=== PATIENT | female | born 1990 | race Hispanic/Latino ===

== ENCOUNTER 2016-09-18 22:31 | Emergency (ER) | payer OTHER ==
[2016-09-18 22:48] VITALS: PULSE 72; O2SAT 99
[2016-09-18] MEDS ORDERED: Bacitracin 500 Units/gm Oint Foilpak UD ONE (23:32)
--- NOTE | 2016-09-18 23:37 | C.PDOC ---
History Of Present Illness A 25 y/o F c/o pain and injury to the right big toe nail that occurred today. Pt jammed her right big toe on a heavy door. Minimal bleeding noted and tetanus UTD. Denies fever, chills, weakness, numbness, or any other complaints. Time Seen by Provider: 09/18/16 22:52 Chief Complaint (Nursing): Lower Extremity Problem/Injury History Per: Patient History/Exam Limitations: no limitations Onset/Duration Of Symptoms: Hrs Current Symptoms Are (Timing): Still Present Severity: Mild Recent travel outside of the [place]: No Additional History Per: Patient - Ankle/Foot Description Of Injury: Struck Against Object (Large heavy door) Past Medical History Reviewed: Historical Data, Nursing Documentation, Vital Signs Vital Signs: Last Vital Signs Temp 98.2 F 09/18/16 23:45 Pulse 72 09/18/16 23:45 Resp 16 09/18/16 23:45 BP 131/80 09/18/16 23:45 Pulse Ox 99 09/19/16 00:49 Family History: States: Unknown Family Hx - Social History Hx Alcohol Use: Yes Hx Substance Use: No - Immunization History Hx Tetanus Toxoid Vaccination: Yes Hx Influenza Vaccination: Yes Hx Pneumococcal Vaccination: No Review Of Systems Except As Marked, All Systems Reviewed And Found Negative. Constitutional: Negative for: Fever, Chills Musculoskeletal: Positive for: Foot Pain (Pain and injury to the right big toe) Neurological: Negative for: Weakness, Numbness Physical Exam - Physical Exam Appears: Non-toxic, No Acute Distress Skin: Warm, Dry Head: Atraumatic, Normacephalic Extremity: No Tenderness (No bony tenderness), Capillary Refill (<2secs), Other (Right big toe nail impacted with nail appearing angulated from the nail bed, but still attached at the base of the nail. No active bleeding. No ecchymosis. ) Pulses: Left Dorsalis Pedis: Normal, Right Dorsalis Pedis: Normal Neurological/Psych: Oriented x3, Normal Motor, Normal Sensation Gait: Steady ED Course And Treatment O2 Sat by Pulse Oximetry: 99 (RA) Pulse Ox Interpretation: Normal Progress Note: Impression: A 25 y/o F c/o pain and injury to the right big toe nail that occurred today. Plans: Motrin, Reassess. Toe irrigated with saline and bacitracin dressing applied. Placed in Orthopedic shoe for support. Pt is in no acute distress at this time. Pt refused XRAY. Pt advised to follow up with ophthalmologist tomorrow for evalutaion. Disposition Counseled Patient/Family Regarding: Diagnosis, Need For Followup, Rx Given - Disposition Disposition: HOME/ ROUTINE Disposition Time: 23:34 Condition: STABLE Additional Instructions: Please follow up with podiatry Keep orthopedic shoe for support Motrin for pain Return to ER if worse Instructions: Nail Avulsion (ED) - Clinical Impression Clinical Impression: Injury of toenail of right foot - Scribe Statement The provider has reviewed the documentation as recorded by the Scribe Carli khan All medical record entries made by the Parishibperfecto were at my direction and personally dictated by me. I have reviewed the chart and agree that the record accurately reflects my personal performance of the history, physical exam, medical decision making, and the department course for this patient. I have also personally directed, reviewed, and agree with the discharge instructions and disposition.
[2016-09-18 23:53] VITALS: BP 131/80; RESP 16; TEMP 98.2
== END 2016-09-18 23:54 | disposition home or self-care (01) ==
LOC: C.ER 22:31
DX: S99.821A Other specified injuries of right foot, initial encounter (principal); W23.1XXA Caught, crushed, jammed, or pinched between stationary objects, initial encounter; Y92.89 Other specified places as the place of occurrence of the external cause